=== PATIENT | male | born 1970 | race Caucasian/White ===

== ENCOUNTER 2022-10-10 10:13 | Outpatient (AMB) | payer OTHER, SELFPAY ==
--- NOTE | 2022-10-10 10:13 | MHC.OFFWIV ---
Intake Vital Signs 10/10/22 10:14 Height 6 ft 3 in Weight 255 lb BMI 31.9 BP 120/76 Blood Pressure Location Rt brachial Position Sitting Pulse 79 Pulse Source Pulse Oximeter Temp 97.7 F Temp Source Temporal Artery Scan Pulse Oximetry (%) 97 Oxygen Delivery Method Room Air Intake Visit Reasons: [employer]/bee sting right hand swelling Intake Note: Patient here because he was stung multiple times on his hand and arms yesterday. Right hand is very red and swollen and seems to be spreading up the arm. Patient Tobacco Use Status: Current everyday Tobacco user Allergies No Known Allergies Allergy (Verified 10/10/22 10:16) Do you need a note to return to daycare/school/sports/work: No HPI [employer]/bee sting right hand swelling HPI Details 52-year-old male presents to the office for a sick visit. Patient got stung by bees yesterday. He reports he was stung at least 20 times. He has swelling over the right arm, forearm, hand, left arm, forearm. Bright welts at the site of the sting. PFSH Social History Patient Tobacco Use Status: Current everyday Tobacco user Physical Exam Vital Signs: Last Vital Signs Temp 97.7 F 10/10/22 10:14 Pulse 79 10/10/22 10:14 BP 120/76 10/10/22 10:14 Pulse Ox 97 10/10/22 10:14 Oxygen Delivery Method Room Air 10/10/22 10:14 BMI result Body Mass Index 31.9 Skin Other: Erythematous area over the right arm, forearm and left arm and forearm. These of the site of the stings with minimal swelling. Assessment & Plan Assessment & Plan (1) Bee sting: Code(s): T63.441A - Toxic effect of venom of bees, accidental (unintentional), initial encounter Plan: Prednisone 60 mg for 3 days. If symptoms not better to follow-up here. Coding Level of Care Code Est Pt Level 3 (96376) Diagnoses Bee sting T63.441A
[2022-10-10 10:14] VITALS: BP 120/76; PULSE 79; TEMP 36.5; O2SAT 97; BMI 31.9
== END 2022-10-10 10:54 | disposition home or self-care (01) ==
PROVIDERS: Visit Provider Internal Medicine
DX: T63.441A Toxic effect of venom of bees, accidental (unintentional), initial encounter (principal)
CPT/HCPCS: 99213